=== PATIENT | female | born 1995 ===

== ENCOUNTER 2021-08-25 11:02 | Emergency (ER) | payer OTHER ==
[~2021-08-25] VITALS: Ht 162.6 cm; Wt 56.7 kg
[2021-08-25] MEDS ORDERED: PEPCID AC20 MG PO (19:50)
[2021-08-25] MEDS ORDERED: NAPROXEN500 MG PO (19:50)
== END 2021-08-25 20:00 | disposition home or self-care (01) ==
LOC: ER 11:02
DX: N83.291 Other ovarian cyst, right side (principal)